=== PATIENT | female | born 1985 | race American Indian/Alaskan Native ===

== ENCOUNTER 2020-09-02 05:04 | Emergency (ER) | payer SELFPAY ==
[2020-09-02] MEDS ORDERED: IBUPROFEN 600 MG TAB PO ONE (05:14)
[2020-09-02] MEDS ORDERED: ACETAMINOPHEN 500 MG TAB PO ONE (05:14)
[2020-09-02 05:16] VITALS: BP 116/76
--- NOTE | 2020-09-02 05:19 | Emergency Department Report ---
ED Upper Extremity Inj HPI - General Chief Complaint: Extremity Injury, Upper Stated Complaint: RT FINGER INJURY Source: patient Mode of arrival: Ambulatory Limitations: No Limitations - History of Present Illness Initial Comments: Patient is a 34-year-old -[place] female with no past medical history presents to the ED with complaint of acute onset persistent severe right hand, right small and right ring finger pain with swelling after a heavy box at work that she was trying to lift slipped and landed on her dorsal right hand 24 hours ago. Patient states that the pain and the swelling of worsened in the last 12 hours. Patient states that she is unable to perform any active range of motion with the right small and ring fingers due to severe pain. Patient denies numbness and tingling or weakness of right hand, dizziness, syncope, chest pain, shortness of breath, abdominal pain, head or neck injuries MD Complaint: Injury to:: right, hand, finger (right small and ring finger pain and swelling) -: Sudden, hour(s) (24) Other Extremity Injury: Hand: Right (right small and ring finger pain) Other Injuries: none Place: work Severity scale (0 -10): 9 Improves With: none Worsens With: movement of extremity Context: direct blow (heavy box fell and landed on right hand), crush, injury Associated Symptoms: denies other symptoms. denies: weakness, numbness, neck pain, suspects foreign body, nausea/vomiting, heard/felt popping sensat - Related Data Previous Rx's Medication Instructions Recorded Last Taken Type Acetaminophen/Codeine [Tylenol 1 tab PO Q6H PRN #12 tab 09/02/20 Unknown Rx /Codeine # 3 tab] Ibuprofen [Motrin] 800 mg PO Q8HR PRN #30 tablet 09/02/20 Unknown Rx methOCARBAMOL [Robaxin TAB] 750 mg PO Q8H PRN #18 tablet 09/02/20 Unknown Rx Allergies Allergy/AdvReac Type Severity Reaction Status Date / Time plums Allergy Hives Uncoded 09/02/20 05:15 ED Review of Systems ROS: Stated complaint: RT FINGER INJURY Other details as noted in HPI Constitutional: denies: chills, fever Eyes: denies: eye pain, eye discharge, vision change ENT: denies: ear pain, throat pain Respiratory: denies: cough, shortness of breath, wheezing Cardiovascular: denies: chest pain, palpitations Endocrine: no symptoms reported Gastrointestinal: denies: abdominal pain, nausea, diarrhea Genitourinary: denies: urgency, dysuria, discharge Musculoskeletal: joint swelling (right small and ring finger), arthralgia (right hand, right small and ring finger). denies: back pain Skin: denies: rash, lesions Neurological: denies: headache, weakness, paresthesias Psychiatric: denies: anxiety, depression Hematological/Lymphatic: denies: easy bleeding, easy bruising ED Past Medical Hx - Past Medical History Previous Medical History?: No - Surgical History Past Surgical History?: No - Social History Smoking Status: Current Every Day Smoker Substance Use Type: None - Medications Home Medications: Home Medications Medication Instructions Recorded Confirmed Last Taken Type Acetaminophen/Codeine [Tylenol 1 tab PO Q6H PRN #12 tab 09/02/20 Unknown Rx /Codeine # 3 tab] Ibuprofen [Motrin] 800 mg PO Q8HR PRN #30 tablet 09/02/20 Unknown Rx methOCARBAMOL [Robaxin TAB] 750 mg PO Q8H PRN #18 tablet 09/02/20 Unknown Rx ED Physical Exam - General Limitations: No Limitations General appearance: alert, in no apparent distress - Head Head exam: Present: atraumatic, normocephalic, normal inspection - Eye Eye exam: Present: normal appearance, PERRL, EOMI Pupils: Present: normal accommodation - ENT ENT exam: Present: normal exam, normal orophraynx, mucous membranes moist, TM's normal bilaterally, normal external ear exam - Neck Neck exam: Present: normal inspection, full ROM. Absent: tenderness - Respiratory Respiratory exam: Present: normal lung sounds bilaterally. Absent: respiratory distress, wheezes, rales, rhonchi, chest wall tenderness, accessory muscle use, decreased breath sounds, prolonged expiratory - Cardiovascular Cardiovascular Exam: Present: regular rate, normal rhythm, normal heart sounds. Absent: systolic murmur, diastolic murmur, rubs, gallop - GI/Abdominal GI/Abdominal exam: Present: soft, normal bowel sounds. Absent: tenderness, guarding, rebound, hyperactive bowel sounds, hypoactive bowel sounds, organome lucia, mass - Extremities Exam Extremities exam: Present: normal inspection, full ROM, tenderness (Palpable severe right hand, right small and rinfg finger tenderness with swelling), normal capillary refill, joint swelling (right small and ring finger swelling and tenderness) - Back Exam Back exam: Present: normal inspection, full ROM. Absent: tenderness, CVA tenderness (R), CVA tenderness (L), muscle spasm, paraspinal tenderness, vertebral tenderness - Neurological Exam Neurological exam: Present: alert, oriented X3, CN II-XII intact, normal gait, reflexes normal - Psychiatric Psychiatric exam: Present: normal affect, normal mood - Skin Skin exam: Present: warm, dry, intact, normal color. Absent: rash ED Course Vital Signs 09/02/20 05:10 Temperature 98.5 F Pulse Rate 64 Respiratory 20 Rate Blood Pressure 116/76 O2 Sat by Pulse 100 Oximetry ED Medical Decision Making - Radiology Data Findings [facility] [address] [place] [address] XRay Report Signed Patient: HUGH GILBERT MR# : [id number] : 1985 Acct:[id number] Age/Sex: 34 / F ADM Date: 09/02/20 Loc: ED Attending Dr: Ordering Physician: IVET PAGE Date of Service: 09/02/20 Procedure(s): XR hand 3+V RT Accession Number(s): [id number] cc: IVET PAGE Fluoro Time In Minutes: RIGHT HAND 3 VIEWS INDICATION / CLINICAL INFORMATION: Traumatic injury COMPARISON: None available. FINDINGS: BONES / JOINT(S): There is an obliquely oriented fracture involving the middle phalanx of the fourth finger. No other fractures are seen. Joint spaces are maintained. SOFT TISSUES: No significant abnormality. ADDITIONAL FINDINGS: None. Signer Name: Hector Hernadez MD Signed: 09/02/2020 5:46 AM Workstation Name: [id number] Transcribed By: SS Dictated By: Hector Hernadez MD Electronically Authenticated By: Hector Hernadez MD Signed Date/Time: 09/02/2046 DD/ TD/TT: - Medical Decision Making This is a 34-year-old -[place] female with no past medical history presents to the ED with complaint of acute onset persistent severe right hand, right small and right ring finger pain with swelling after a heavy box at work that she was trying to lift slipped and landed on her dorsal right hand 24 hours ago. Patient states that the pain and the swelling of worsened in the last 12 hours. Patient states that she is unable to perform any active range of motion with the right small and ring fingers due to severe pain. In the ED, patient is alert and oriented x3 and is not in distress. Patient appears to be in pain. Patient was treated for pain in the ED and right hand x-ray showed an obliquely oriented fracture involving the middle phalanx of the fourth finger. No other fractures are seen. Joint spaces are maintained. The right ring finger was splinted with a finger splint and the patient tolerated the procedure well. The right ring finger was neurovascularly intact after the splint application upon reevaluation. Patient was therefore discharged home on pain medications and was advised to follow-up with the orthopedic surgeon Dr. Ferris in 24-48 hours for further evaluation. Patient was advised to return to the ED immediately if symptoms get worse. - Differential Diagnosis Finger fracture; finger sprain; hand contusion; finger contusion Critical care attestation.: If time is entered above; I have spent that time in minutes in the direct care of this critically ill patient, excluding procedure time. ED Disposition Clinical Impression: Sprain of right hand Qualifiers: Encounter type: initial encounter Qualified Code(s): S63.91XA - Sprain of unspecified part of right wrist and hand, initial encounter Closed fracture of phalanx of right ring finger Qualifiers: Encounter type: initial encounter Phalanx: middle Fracture alignment: displaced Qualified Code(s): S62.624A - Displaced fracture of middle phalanx of right ring finger, initial encounter for closed fracture Contusion of right hand including fingers Qualifiers: Encounter type: initial encounter Qualified Code(s): S60.221A - Contusion of right hand, initial encounter; S60.00XA - Contusion of unspecified finger without damage to nail, initial encounter Disposition: DC-01 TO HOME OR SELFCARE Is pt being admited?: No Does the pt Need Aspirin: No Condition: Stable Instructions: Finger Sprain, Adult, Fwte-ad-Oxvo Additional Instructions: Take medication with food, drink plenty of fluids and follow-up with your primary care physician in 7 to 10 days for reevaluation. Return to the ED immediately if symptoms get worse. Prescriptions: Ibuprofen [Motrin] 800 mg PO Q8HR PRN #30 tablet PRN Reason: Pain , Severe (7-10) methOCARBAMOL [Robaxin TAB] 750 mg PO Q8H PRN #18 tablet PRN Reason: Muscle Spasm Acetaminophen/Codeine [Tylenol /Codeine # 3 tab] 1 tab PO Q6H PRN #12 tab PRN Reason: Pain , Severe (7-10) Referrals: [facility] [Provider Group] - 3-5 Days CHICHI FERRIS MD [Staff Physician] - [facility] Forms: Work/School Release Form(ED) Time of Disposition: 05:18 Print Language: [place] CITIZ[place]
--- NOTE | 2020-09-02 05:50 | XRay Report ---
RIGHT HAND 3 VIEWS INDICATION / CLINICAL INFORMATION: Traumatic injury COMPARISON: None available. FINDINGS: BONES / JOINT(S): There is an obliquely oriented fracture involving the middle phalanx of the fourth finger. No other fractures are seen. Joint spaces are maintained. SOFT TISSUES: No significant abnormality. ADDITIONAL FINDINGS: None. Signer Name: Hector Hernadez MD Signed: 09/02/2020 5:46 AM Workstation Name: [id number]
== END 2020-09-02 06:45 | disposition home or self-care (01) ==
LOC: ED 05:04
DX: S63.91XA Sprain of unspecified part of right wrist and hand, initial encounter (principal); S62.624A Displaced fracture of middle phalanx of right ring finger, initial encounter for closed fracture; S60.221A Contusion of right hand, initial encounter; F17.200 Nicotine dependence, unspecified, uncomplicated; Z79.899 Other long term (current) drug therapy; W19.XXXA Unspecified fall, initial encounter; Y93.89 Activity, other specified; Y92.89 Other specified places as the place of occurrence of the external cause; Y99.8 Other external cause status
CPT/HCPCS: 99283

== ENCOUNTER 2021-12-12 09:48 | Emergency (ER) | payer SELFPAY ==
[2021-12-12] MEDS ORDERED: HYDROcodone/ACETAMINOPHEN 5-325 MG TAB PO STA (11:19)
--- NOTE | 2021-12-12 11:22 | Emergency Department Report ---
ED Back Pain/Injury HPI - General Stated Complaint: BACK PACK Time Seen by Provider: 12/12/21 11:18 - History of Present Illness MD Complaint: back pain -: Sudden, days(s) (3) Similar Symptoms Previously: Yes Place: home Consistency: constant Improves With: immobilization Worsens With: movement, sitting upright, walking Context: while lifting (a baby felt pain in lower back. Then coughed and the pain worsend. ) - Related Data Previous Rx's Medication Instructions Recorded Last Taken Type Acetaminophen/Codeine [Tylenol 1 tab PO Q6H PRN #12 tab 09/02/20 Unknown Rx /Codeine # 3 tab] Ibuprofen [Motrin] 800 mg PO Q8HR PRN #30 tablet 09/02/20 Unknown Rx methOCARBAMOL [Robaxin TAB] 750 mg PO Q8H PRN #18 tablet 09/02/20 Unknown Rx Ketorolac [Toradol] 10 mg PO Q6H PRN #15 tablet 12/12/21 Unknown Rx methOCARBAMOL [Robaxin TAB] 750 mg PO Q8H PRN #14 tablet 12/12/21 Unknown Rx Allergies Allergy/AdvReac Type Severity Reaction Status Date / Time plums Allergy Hives Uncoded 09/02/20 05:15 ED Review of Systems ROS: Stated complaint: BACK PACK Other details as noted in HPI Comment: All other systems reviewed and negative ED Past Medical Hx - Social History Smoking Status: Current Every Day Smoker Substance Use Type: None - Medications Home Medications: Home Medications Medication Instructions Recorded Confirmed Last Taken Type Acetaminophen/Codeine [Tylenol 1 tab PO Q6H PRN #12 tab 09/02/20 Unknown Rx /Codeine # 3 tab] Ibuprofen [Motrin] 800 mg PO Q8HR PRN #30 tablet 09/02/20 Unknown Rx methOCARBAMOL [Robaxin TAB] 750 mg PO Q8H PRN #18 tablet 09/02/20 Unknown Rx Ketorolac [Toradol] 10 mg PO Q6H PRN #15 tablet 12/12/21 Unknown Rx methOCARBAMOL [Robaxin TAB] 750 mg PO Q8H PRN #14 tablet 12/12/21 Unknown Rx ED Course Vital Signs 12/12/21 11:19 Temperature 98.1 F Pulse Rate 66 Respiratory 18 Rate Blood Pressure 131/96 [Left] O2 Sat by Pulse 97 Oximetry ED Medical Decision Making - Radiology Data Radiology results: report reviewed [facility] [address] [place] [address] XRay Report Signed Patient: HUGH GILBERT MR# : [id number] : 1985 Acct:[id number] Age/Sex: 36 / F ADM Date: 12/12/21 Loc: ED Attending Dr: Ordering Physician: IVET JASMINE Date of Service: 12/12/21 Procedure(s): XR spine lumbosacral 2-3V Accession Number(s): [id number] cc: IVET JASMINE Fluoro Time In Minutes: LUMBOSACRAL SPINE 3 VIEWS INDICATION: lower back pain. COMPARISON: None. IMPRESSION: Normal alignment. Minimal discogenic DJD and facet arthropathy are noted throughout the lumbar spine. No acute osseous or soft tissue abnormality. Signer Name: Belinda Monterroso Jr, MD Signed: 12/12/2021 12:06 PM Workstation Name: [id number] Transcribed By: TTR Dictated By: BELINDA MONTERROSO JR, MD Electronically Authenticated By: BELINDA MONTERROSO JR, MD Signed Date/Time: 12/12/21 1206 DD/ 1205 TD/TT: - Medical Decision Making Pt presents the emergency department complaining of back pain most consistent with musculoskeletal back Pain Most Consistent with Strain/Contusion. Differential Diagnosis Includes Lumbar Go Versus Musculoskeletal Spasm, Strain Versus Sciatica. No Back Pain Red Flags on History or Physical. Presentation Not Consistent with Malignancy, Fracture, Cauda Equina, Abdominal Aortic Aneurysm, Viscus Perforation, Pulmonary Embolism, Renal Colic, Pyelonephritis. Patient reports no B symptoms, trauma trauma, incontinence, saddle anesthesia, distal weakness, urinary symptoms and is a febrile. Critical care attestation.: If time is entered above; I have spent that time in minutes in the direct care of this critically ill patient, excluding procedure time. ED Disposition Clinical Impression: Lumbago Disposition: 01 HOME / SELF CARE / HOMELESS Is pt being admited?: No Does the pt Need Aspirin: No Condition: Stable Instructions: What You Need to Know About Chronic Back Pain, Back Exercises, [id number] Prescriptions: methOCARBAMOL [Robaxin TAB] 750 mg PO Q8H PRN #14 tablet PRN Reason: Pain, Moderate (4-6) Ketorolac [Toradol] 10 mg PO Q6H PRN #15 tablet PRN Reason: Pain Referrals: [facility] [Provider Group] - 3-5 Days
--- NOTE | 2021-12-12 12:10 | XRay Report ---
LUMBOSACRAL SPINE 3 VIEWS INDICATION: lower back pain. COMPARISON: None. IMPRESSION: Normal alignment. Minimal discogenic DJD and facet arthropathy are noted throughout the lumbar spine. No acute osseous or soft tissue abnormality. Signer Name: Wilfrid Fuentes Jr, MD Signed: 12/12/2021 12:06 PM Workstation Name: [id number]
[2021-12-12 15:18] VITALS: BP 119/82
== END 2021-12-12 15:17 | disposition home or self-care (01) ==
LOC: ED 09:48
DX: M54.50 Low back pain, unspecified (principal); F17.200 Nicotine dependence, unspecified, uncomplicated; Z91.018 Allergy to other foods
CPT/HCPCS: 72100; 99283